=== PATIENT | male | born 1975 | race Caucasian/White ===

== ENCOUNTER → 2017-05-20 | Outpatient (CLI) | payer OTHER ==
--- NOTE | 2017-05-20 13:17 | REP ---
Clinical: Trauma. Technique: AP, lateral, bilateral oblique views right foot . Findings: The osseous structures and joint spaces are intact and there is no evidence for acute fracture or dislocation. Subtle irregularity may represent old injuries involving the third and fourth proximal phalanges. Lateral view demonstrates small calcaneal heal spur. Surrounding soft tissues are unremarkable. No subcutaneous emphysema or radiodense foreign body. Impression: No acute fracture or dislocation. Signed by Giorgi Lou MD 05/20/2017 01:08 P
== END ==
LOC: M RAD 12:50
PROVIDERS: ATTEND Physician Assistant Medical
DX: S92.901A Unspecified fracture of right foot, initial encounter for closed fracture (principal); X58.XXXA Exposure to other specified factors, initial encounter; Y92.89 Other specified places as the place of occurrence of the external cause; Y93.89 Activity, other specified; Y99.8 Other external cause status

== ENCOUNTER 2018-03-14 21:34 | Emergency (ER) | payer OTHER | END 2018-03-14 23:57 | disposition home or self-care (01) | LOC: M ED 21:34 | DX: K12.1 Other forms of stomatitis (principal); K08.409 Partial loss of teeth, unspecified cause, unspecified class; Z97.2 Presence of dental prosthetic device (complete) (partial) | CPT/HCPCS: 99283 ==